=== PATIENT | male | born 1995 ===

== ENCOUNTER → 2020-12-01 | Day surgery (SDC) | payer BC ==
[~2020-12-01] MED LIST: Dexamethasone 4 MG/ML SDV ONE; Glycopyrrolate 0.2 MG/ML SDV ONE; HYDROmorphone 0.5 MG/0.5 ML Syringe IVPUSH PRN; HYDROmorphone 0.5 MG/0.5 ML Syringe ONE; Ketamine 500 mg/10 ML MDV ONE; Ketorolac 30 MG/ML SDV ONE; Lactated Ringers 1,000 ML IV SCH; Lidocaine 1% 4 ML ONE; Lidocaine 1%/Sod Bicarbonate in NS 8.4% 1 ML Syringe IDERM PRN; Midazolam 1 MG/ML 2 ML SDV ONE; Ondansetron 4 MG/2 ML SDV IVPUSH PRN; Ondansetron 4 MG/2 ML SDV ONE; Propofol 200 MG/20 ML SDV ONE; Rocuronium 50 MG/5 ML Vial ONE; Sodium Chloride 0.9% 10 ML Syringe FLUSH PRN; ceFAZolin 1 GM Vial ONE; fentaNYL 100 MCG/2 ML SDV IVPUSH PRN; fentaNYL 250 MCG/5 ML SDV ONE; oxyCODONE 5 MG Tab PO PRN
--- NOTE | 2020-12-01 08:55 | PCM.PREANE ---
Preanesthetic Assessment - Anesthesia/Transfusion/Family Hx Anesthesia History: No Prior Anesthesia Family History of Anesthesia Reaction: No Transfusion History: No Prior Transfusion(s) - Review of Systems General: No Symptoms, Other (tested positive for covid 4/9 with no symptoms, chews smokeless tobacco 1 can per day, last time was yesterday) Pulmonary: No Symptoms, Other (has a chronic dry cough) Cardiovascular: No Symptoms Other: Reports: Depression, Anxiety (borderline personality disorder) - Physical Assessment NPO Status Date: 11/30/20 NPO Status Time: 23:30 ASA Class: 2 Mental Status: Alert & Oriented x3 Airway Class: Mallampati = 2 Dentition: Reports: Normal Dentition Thyro-Mental Finger Breadths: 3 Mouth Opening Finger Breadths: 3 ROM/Head Extension: Full Lungs: Clear to Auscultation, Normal Respiratory Effort Cardiovascular: Regular Rate, Regular Rhythm - Allergies Allergies/Adverse Reactions: Allergies Allergy/AdvReac Type Severity Reaction Status Date / Time No Known Allergies Allergy Verified 11/30/20 11:03 - Blood Blood Available: No Product(s) Available: None - Anesthesia Plan Pre-Op Medication Ordered: None - Acknowledgements Anesthesia Type Planned: General Anesthesia Pt an Appropriate Candidate for the Planned Anesthesia: Yes Alternatives and Risks of Anesthesia Discussed w Pt/Guardian: Yes Pt/Guardian Understands and Agrees with Anesthesia Plan: Yes PreAnesthesia Questionnaire HEENT History: Reports: Impaired Vision, Other (See Below) Other HEENT History: wears glasses Cardiovascular History: Reports: None Respiratory History: Reports: None Gastrointestinal History: Reports: Other (See Below) Other Gastrointestinal History: steatohepatitis, epigastric, elevated LFTs Genitourinary History: Reports: None [employer] History: Reports: None Musculoskeletal History: Reports: None Neurological History: Reports: Migraines Psychiatric History: Reports: Anxiety, Depression, Other (See Below) Other Psychiatric History: borderline personality disorder Endocrine/Metabolic History: Reports: None Hematologic History: Reports: None Immunologic History: Reports: None Oncologic (Cancer) History: Reports: None Dermatologic History: Reports: None - Infectious Disease History Infectious Disease History: Reports: Novel Coronavirus - Past Surgical History Head Surgeries/Procedures: Reports: None HEENT Surgical History: Reports: None Cardiovascular Surgical History: Reports: None Respiratory Surgical History: Reports: None GI Surgical History: Reports: None Female Surgical History: Reports: None Male Surgical History: Reports: None Endocrine Surgical History: Reports: None Neurological Surgical History: Reports: None Musculoskeletal Surgical History: Reports: None Oncologic Surgical History: Reports: None Dermatological Surgical History: Reports: None - SUBSTANCE USE Tobacco Use Status *Q: Current Every Day Tobacco User Tobacco Use Within Last Twelve Months: Snuff/Dip Recreational Drug Use History: No - HOME MEDS Home Medications: Home Meds . [No Known Home Meds] 11/30/20 [History] - CURRENT (IN HOUSE) MEDS Current Meds: Current Medications Lactated Ringer's (Ringers, Lactated) 1,000 mls @ 125 mls/hr IV ASDIRECTED NICK Stop: 12/01/20 23:00 Lidocaine/Sodium Bicarbonate (Lidocaine 1%/Sod Bicarbonate In Ns 8.4% 1 Ml Syringe) 0.25 ml IDERM ONETIME PRN PRN Reason: Prior to IV Start Stop: 12/01/20 18:00 Sodium Chloride (Sodium Chloride 0.9% 10 Ml Syringe) 10 ml FLUSH ASDIRECTED PRN PRN Reason: Keep Vein Open Stop: 12/01/20 18:00 Discontinued Medications Bupivacaine HCl/Epinephrine Bitart (Bupivacaine 0.5%/Epinephrine 1:200,000 50 Ml Mdv) Confirm Administered Dose 50 ml .ROUTE .STK-MED ONE Stop: 12/01/20 08:42 Dexamethasone (Dexamethasone 4 Mg/Ml Sdv) Confirm Administered Dose 4 mg .ROUTE .STK-MED ONE Stop: 12/01/20 08:37 Fentanyl (Fentanyl 250 Mcg/5 Ml Sdv) Confirm Administered Dose 250 mcg .ROUTE .STK-MED ONE Stop: 12/01/20 08:36 Lidocaine HCl (Xylocaine-Mpf 1%) Confirm Administered Dose 4 mls @ as directed .ROUTE .STK-MED ONE Stop: 12/01/20 08:37 Midazolam HCl (Midazolam 1 Mg/Ml 2 Ml Sdv) Confirm Administered Dose 2 mg .ROUTE .STK-MED ONE Stop: 12/01/20 08:35 Ondansetron HCl (Ondansetron 4 Mg/2 Ml Sdv) Confirm Administered Dose 4 mg .ROUTE .STK-MED ONE Stop: 12/01/20 08:37 Propofol (Propofol 200 Mg/20 Ml Sdv) Confirm Administered Dose 200 mg .ROUTE .STK-MED ONE Stop: 12/01/20 08:34 Rocuronium [place] (Rocuronium 50 Mg/5 Ml Vial) Confirm Administered Dose 50 mg .ROUTE .[facility] ONE Stop: 12/01/20 08:37
[2020-12-01] MEDS: Bupivacaine 0.5%/EPINEPHrine 1:200,000 50 ML MDV ONE ×2 (09:41→10:17)
--- NOTE | 2020-12-01 10:51 | PCM.PRNOTE ---
- Free Text/Narrative Note: Date: 12/01/2020 Operation: diagnostic esophagogastroduodenoscopy and laparoscopic cholecystectomy Indication: abnormal ejection fraction on HIDA scan Surgeon: Nishant Cohn MD Findings: normal findings on EGD- sample biopsies were obtained of duodenum, antrum and esophagus. Fatty gallbladder with apparent mild chronic inflammation. Critical view of safety established. Detailed Report: The patient was taken to the operating room and placed in supine position on the table. Timeout was performed and general endotracheal anesthesia was initiated. A bite-block was placed, and upper endoscopy was performed. The scope was advanced to the second portion of the duodenum. Duodenal mucosa appeared normal, a sample biopsy of mucosa was obtained with cold forceps. The stomach appeared normal without evidence of ulceration or inflammation. A sample of antral mucosa was obtained with cold forceps. No hiatal hernia was appreciated. The scope was withdrawn into the distal esophagus. The Z-line appeared normal. A biopsy of distal esophageal mucosa was obtained with cold forceps. No pathology was noted otherwise as the scope was withdrawn through the esophagus. The stomach was desufflated prior to complete withdrawal of the scope. Next, abdominal hair was clipped and the abdomen was prepped and draped in usual sterile fashion. A Veress needle was placed in the left upper quadrant to establish pneumoperitoneum. Air was aspirated just superior to the umbilicus with a needle and syringe. Once pressure reached 15 cm of water, a 5 mm bladed trocar was inserted just superior to the umbilicus. 5 mm 30 degree laparoscope was inserted into the abdomen and contents were inspected. There was no injury from Veress needle placement, and the needle was withdrawn. Additional 5 mm ports were placed under laparoscopic visualization at the lateral right upper quadrant and more medial right upper quadrant. The fundus of the gallbladder was grasped and retracted cephalad. A 12 mm bladed trocar was placed in the subxiphoid region. The infundibulum was retracted laterally. Visceral peritoneum of the gallbladder was divided using hook monopolar energy. There was a thick layer of fatty tissue encasing the gallbladder. Careful dissection ensued, and the cystic structures were identified. Skeletonization was performed and a critical view of safety was obtained. Hemolock clips were placed on the cystic duct and cystic artery prior to transection. The gallbladder was removed from the liver using hook monopolar energy. The gallbladder was completely intact, and was placed in an Endo Catch bag and removed from the abdomen through the subxiphoid port. The dissection field appeared clean and dry. The larger subxiphoid incision was closed at the level of fascia with 0 Vicryl using a laparoscopic suture passer. Pneumoperitoneum was released as smaller ports were removed under laparoscopic visualization. Hemostasis was satisfactory. All skin incisions were closed with subcuticular 4-0 Vicryl suture and dressed with Dermabond. A total of 30 cc 0.5% Marcaine with epinephrine was used for local anesthetic throughout the case. The patient tolerated the procedure well.
--- NOTE | 2020-12-01 10:56 | PCM.POSTAN ---
POST ANESTHESIA ASSESSMENT - MENTAL STATUS Mental Status: Other (drowsy ) - VITAL SIGNS Vital Signs: Last Vital Signs Temp 36.2 C 12/01/20 08:30 Pulse 58 L 12/01/20 08:30 Resp 18 12/01/20 08:30 BP 129/50 L 12/01/20 08:30 Pulse Ox 97 12/01/20 08:30 - RESPIRATORY Respiratory Status: Respiratory Rate WNL, Airway Patent, O2 Saturation Stable, Supplemental Oxygen - CARDIOVASCULAR CV Status: Pulse Rate WNL, Blood Pressure Stable - GASTROINTESTINAL GI Status: No Symptoms - PAIN Pain Score: 0 - POST OP HYDRATION Hydration Status: Adequate & Stable
== END | disposition home or self-care (01) ==
LOC: JD.SDS 08:09
PROVIDERS: ATTEND Surgery
DX: K29.50 Unspecified chronic gastritis without bleeding (principal); K81.1 Chronic cholecystitis; K20.90 Esophagitis, unspecified without bleeding; K31.89 Other diseases of stomach and duodenum; K63.89 Other specified diseases of intestine; F17.210 Nicotine dependence, cigarettes, uncomplicated; Z86.16 Personal history of COVID-19
CPT/HCPCS: 43239; 47562; J0690; J1100; J1170; J1885; J2250; J2405; J2704; J2710; J3010; J3490; J7120; 00790